=== PATIENT | female | born 1950 | race African-American/Black ===

== ENCOUNTER 2021-06-07 14:35 | Inpatient (IN) | payer MEDICAID ==
[~2021-06-07] VITALS: Ht 157.5 cm; Wt 97.1 kg
[2021-06-07 18:43] LABS: BASOPHILS % 0.5 % (0.0-2.0); EOSINOPHILS % 1.8 % (0.0-5.0); HEMATOCRIT. 28.9 % (36.0-48.0); HEMOGLOBIN. 9.4 g/dL (12.0-16.0); LYMPHOCYTES % 19.4 % (20.0-50.0); MEAN PLATELET VOLUME 7.2 fl (7.4-10.4); MONOCYTES % 9.5 % (2.0-8.0); NEUTROPHILS % 68.8 % (40.0-76.0); PLATELET 436 x1000/uL (130-400); RED BLOOD CELL COUNT 3.36 mill/uL (4.2-5.4); RED CELL DISTRIBUTION WIDTH 16.1 % (11.6-14.6)
[2021-06-07 18:53] LABS: CHLORIDE 104 mEq/L (98-107)
[2021-06-07] MEDS ORDERED: MORPHINE SULFATE 10 MG/ML CPJ IV ONE (22:45)
[2021-06-07 23:54] LABS: PROTHROMBIN TIME 10.9 sec (9.6-11.0)
[2021-06-08] MEDS ORDERED: MORPHINE SULFATE 4 MG/ML CPJ (NOT FOR IM USE) IV PRN ×2 (03:45→03:50)
[2021-06-08] MEDS ORDERED: HYDROMORPHONE HCL/PF 2MG/ML CPJ IV NR (06:15)
[2021-06-08] MEDS ORDERED: ONDANSETRON HCL 4MG/2ML INJ IV PRN (08:45)
[2021-06-08] MEDS ORDERED: NALOXONE HCL 0.4MG/ML VIAL IV PRN (09:15)
[2021-06-08] MEDS: DOCUSATE SODIUM 100MG CAPSULE PO SCH ×2 (09:30→18:40)
[2021-06-08 09:54] VITALS: BP 142/78
[2021-06-08 12:00] VITALS: BP 102/53
[2021-06-08] MEDS: MORPHINE SULFATE 2 MG/ML CPJ (NOT FOR IM USE) IV PRN ×3 (14:36→22:42)
[2021-06-08 18:00] VITALS: BP 129/60
[2021-06-08 20:00] VITALS: BP 121/58
[2021-06-08 22:47] VITALS: BP 144/109
[2021-06-09] MEDS: HYDROCODONE/ACETAMINOPHEN 5/325MG TABLET PO PRN ×2 (01:11→20:00)
[2021-06-09] MEDS: MORPHINE SULFATE 2 MG/ML CPJ (NOT FOR IM USE) IV PRN ×4 (03:36→22:14)
[2021-06-09 03:43] VITALS: BP 125/58
[2021-06-09] MEDS ORDERED: LIDOCAINE HCL/EPINEPHRINE 1%-EPI 1:100,000 20 ML VIAL ONE (07:24)
[2021-06-09] MEDS ORDERED: VANCOMYCIN HCL 1 GM/VIAL ONE ×2 (07:24→07:25)
[2021-06-09] MEDS ORDERED: POLYMYXIN B SULFATE 500000 UNITS/VIAL ONE (07:24)
[2021-06-09] MEDS ORDERED: DEXAMETHASONE 4MG/ML 1ML VIAL ONE (07:27)
[2021-06-09] MEDS ORDERED: ONDANSETRON HCL 4MG/2ML INJ ONE (07:27)
[2021-06-09] MEDS ORDERED: LIDOCAINE HCL 1% 20ML VIAL (Pyxis) INJ ONE (07:27)
[2021-06-09] MEDS ORDERED: PROPOFOL 200MG/20ML VIAL IV ONE ×2 (07:27→07:56)
[2021-06-09] MEDS ORDERED: FENTANYL CITRATE/PF 50MCG/ML 2ML VIAL ONE (07:27)
[2021-06-09] MEDS ORDERED: MIDAZOLAM HCL 2 MG/2 ML VIAL ONE (07:40)
[2021-06-09] MEDS ORDERED: HYDROMORPHONE HCL/PF 2MG/ML CPJ ONE (08:13)
[2021-06-09] MEDS ORDERED: MEPERIDINE HCL/PF 25MG/ML CPJ IV PRN (08:45)
[2021-06-09] MEDS ORDERED: LABETALOL 5MG/ML SYR 20 MG/4 ML SYRINGE IV PRN (08:45)
[2021-06-09] MEDS ORDERED: ONDANSETRON HCL 4MG/2ML INJ IV PRN (08:45)
[2021-06-09] MEDS ORDERED: HYDROMORPHONE HCL/PF 2MG/ML CPJ IV PRN (08:45)
[2021-06-09] MEDS ORDERED: BUPIVACAINE HCL/PF 0.5% (5MG/ML) 30ML ONE (08:48)
[2021-06-09] MEDS: DOCUSATE SODIUM 100MG CAPSULE PO SCH ×2 (09:00→16:35)
[2021-06-09 11:57] VITALS: BP 140/77
[2021-06-09] MEDS: CEFAZOLIN 2,000 MG in DEXT 5% WATER 100 ML IV SCH ×2 (12:51→18:20)
[2021-06-09 15:40] LABS: HEMATOCRIT. 26.4 % (36.0-48.0); HEMOGLOBIN. 8.7 g/dL (12.0-16.0); MEAN CORPUSCULAR VOLUME 85.2 fL (81.0-99.0); MEAN PLATELET VOLUME 7.4 fl (7.4-10.4); PLATELET 480 x1000/uL (130-400); RED BLOOD CELL COUNT 3.09 mill/uL (4.2-5.4); RED CELL DISTRIBUTION WIDTH 15.8 % (11.6-14.6)
[2021-06-09 15:51] LABS: CHLORIDE 104 mEq/L (98-107)
[2021-06-09 16:00] VITALS: BP 126/96
[2021-06-09 16:15] LABS: PLATELET ESTIMATE INCREASED
[2021-06-09 20:00] VITALS: BP 132/69
[2021-06-10] VITALS: BP 121/92
[2021-06-10] MEDS: HYDROCODONE/ACETAMINOPHEN 5/325MG TABLET PO PRN ×4 (00:11→20:08)
[2021-06-10] MEDS: CEFAZOLIN 2,000 MG in DEXT 5% WATER 100 ML IV SCH ×3 (02:21→17:57)
[2021-06-10] MEDS: MORPHINE SULFATE 2 MG/ML CPJ (NOT FOR IM USE) IV PRN ×3 (02:22→13:51)
[2021-06-10 04:00] VITALS: BP 138/89
[2021-06-10 08:00] VITALS: BP 131/48
[2021-06-10] MEDS: DOCUSATE SODIUM 100MG CAPSULE PO SCH ×2 (08:41→17:57)
[2021-06-10 12:00] VITALS: BP 139/61
[2021-06-10 16:00] VITALS: BP 119/73
[2021-06-10 20:00] VITALS: BP 116/60
[2021-06-10 20:46] LABS: BASOPHILS % 0.3 % (0.0-2.0); EOSINOPHILS % 0.8 % (0.0-5.0); HEMATOCRIT. 23.4 % (36.0-48.0); HEMOGLOBIN. 7.7 g/dL (12.0-16.0); LYMPHOCYTES % 16.9 % (20.0-50.0); MEAN CORPUSCULAR VOLUME 85.6 fL (81.0-99.0); MEAN PLATELET VOLUME 7.1 fl (7.4-10.4); MONOCYTES % 13.6 % (2.0-8.0); NEUTROPHILS % 68.4 % (40.0-76.0); PLATELET 430 x1000/uL (130-400); RED BLOOD CELL COUNT 2.74 mill/uL (4.2-5.4); RED CELL DISTRIBUTION WIDTH 16.1 % (11.6-14.6)
[2021-06-10 21:01] LABS: CHLORIDE 103 mEq/L (98-107)
[2021-06-11] VITALS: BP 120/71
[2021-06-11] MEDS: HYDROCODONE/ACETAMINOPHEN 5/325MG TABLET PO PRN ×5 (00:15→19:33)
[2021-06-11] MEDS: CEFAZOLIN 2,000 MG in DEXT 5% WATER 100 ML IV SCH (02:40)
[2021-06-11 04:00] VITALS: BP 127/52
[2021-06-11 08:00] VITALS: BP 130/48
[2021-06-11] MEDS: DOCUSATE SODIUM 100MG CAPSULE PO SCH ×2 (08:15→17:35)
[2021-06-11] MEDS ORDERED: HYDR-4001 MT (10:54)
[2021-06-11] MEDS ORDERED: FERR-71 MT (10:55)
[2021-06-11] MEDS ORDERED: DOCU250C14 MT (10:55)
[2021-06-11 12:00] VITALS: BP 130/63
[2021-06-11 16:14] VITALS: BP 130/41
[2021-06-11 20:00] VITALS: BP 126/63
[2021-06-11] MEDS: LORAZEPAM 2MG/ML CPJ IV PRN (20:25)
[2021-06-12] VITALS: BP 119/59
[2021-06-12] MEDS: HYDROCODONE/ACETAMINOPHEN 5/325MG TABLET PO PRN ×4 (01:10→22:13)
[2021-06-12 04:00] VITALS: BP 121/61
[2021-06-12 08:00] VITALS: BP 118/66
[2021-06-12] MEDS: DOCUSATE SODIUM 100MG CAPSULE PO SCH ×2 (09:51→18:30)
[2021-06-12] MEDS: SULFAMETHOXAZOLE/TRIMETHOPRIM 800/160MG TABLET PO SCH ×2 (12:18→22:12)
[2021-06-12 16:00] VITALS: BP 141/89
[2021-06-12 16:29] LABS: HEMATOCRIT 23.5 % (36.0-48.0); HEMOGLOBIN 7.6 g/dL (12.0-16.0)
[2021-06-12 20:00] VITALS: BP 145/73
[2021-06-12] MEDS: LACTULOSE 20G/30ML UDC PO SCH (22:12)
[2021-06-13] VITALS: BP 139/70
[2021-06-13 04:00] VITALS: BP 140/71
[2021-06-13] MEDS: LACTULOSE 20G/30ML UDC PO SCH ×3 (05:09→22:13)
[2021-06-13] MEDS: HYDROCODONE/ACETAMINOPHEN 5/325MG TABLET PO PRN ×4 (06:43→23:19)
[2021-06-13 08:00] VITALS: BP 136/66
[2021-06-13] MEDS: SULFAMETHOXAZOLE/TRIMETHOPRIM 800/160MG TABLET PO SCH ×2 (08:40→22:13)
[2021-06-13] MEDS: DOCUSATE SODIUM 100MG CAPSULE PO SCH (08:40)
[2021-06-13] MEDS ORDERED: NALOXONE HCL 0.4MG/ML VIAL IV PRN (10:15)
[2021-06-13] MEDS: DOCUSATE SODIUM 250MG CAPSULE PO SCH (10:28)
[2021-06-13 12:07] VITALS: BP 131/54
[2021-06-13] MEDS ORDERED: SORBITOL 70% SOLN 30ML PO NR (13:00)
[2021-06-13] MEDS: FERROUS SULFATE 325MG TABLET PO SCH ×2 (13:14→17:34)
[2021-06-13] MEDS: NA PHOS,M-B/NA PHOS,DI-BA ENEMA 118ML PR NR ×3 (15:30→17:34)
[2021-06-13 16:00] VITALS: BP 135/57
[2021-06-13 20:00] VITALS: BP 133/78
[2021-06-14] VITALS: BP 151/60
[2021-06-14 04:00] VITALS: BP 146/70
[2021-06-14] MEDS: LACTULOSE 20G/30ML UDC PO SCH ×3 (05:41→21:52)
[2021-06-14] MEDS: HYDROCODONE/ACETAMINOPHEN 5/325MG TABLET PO PRN ×4 (05:42→18:01)
[2021-06-14 08:00] VITALS: BP 112/53
[2021-06-14] MEDS: DOCUSATE SODIUM 250MG CAPSULE PO SCH (08:44)
[2021-06-14] MEDS: SULFAMETHOXAZOLE/TRIMETHOPRIM 800/160MG TABLET PO SCH ×2 (08:44→21:51)
[2021-06-14] MEDS: FERROUS SULFATE 325MG TABLET PO SCH ×3 (08:44→18:03)
[2021-06-14 12:00] VITALS: BP 129/54
[2021-06-14 12:36] LABS: HEMATOCRIT 24.8 % (36.0-48.0); HEMOGLOBIN 8.1 g/dL (12.0-16.0)
[2021-06-14 16:00] VITALS: BP 128/57
[2021-06-14 20:00] VITALS: BP 127/64
[2021-06-14] MEDS: LORAZEPAM 2MG/ML CPJ IV PRN (21:52)
[2021-06-15] VITALS: BP 127/50
[2021-06-15] MEDS: HYDROCODONE/ACETAMINOPHEN 5/325MG TABLET PO PRN ×5 (02:13→21:41)
[2021-06-15 04:00] VITALS: BP 125/55
[2021-06-15] MEDS: LACTULOSE 20G/30ML UDC PO SCH ×3 (06:15→21:30)
[2021-06-15 08:00] VITALS: BP 125/53
[2021-06-15] MEDS: FERROUS SULFATE 325MG TABLET PO SCH ×3 (08:55→17:19)
[2021-06-15] MEDS: SULFAMETHOXAZOLE/TRIMETHOPRIM 800/160MG TABLET PO SCH ×2 (08:57→21:30)
[2021-06-15] MEDS: DOCUSATE SODIUM 250MG CAPSULE PO SCH (08:57)
[2021-06-15 12:00] VITALS: BP 120/78
[2021-06-15 16:00] VITALS: BP 137/68
[2021-06-15 20:00] VITALS: BP 116/56
[2021-06-16] VITALS: BP 156/51
[2021-06-16 04:00] VITALS: BP 142/41
[2021-06-16] MEDS: HYDROCODONE/ACETAMINOPHEN 5/325MG TABLET PO PRN ×3 (06:37→18:24)
[2021-06-16] MEDS: LACTULOSE 20G/30ML UDC PO SCH ×3 (06:37→21:37)
[2021-06-16 08:00] VITALS: BP 115/89
[2021-06-16] MEDS: DOCUSATE SODIUM 250MG CAPSULE PO SCH (08:16)
[2021-06-16] MEDS: FERROUS SULFATE 325MG TABLET PO SCH ×3 (08:16→17:05)
[2021-06-16] MEDS: SULFAMETHOXAZOLE/TRIMETHOPRIM 800/160MG TABLET PO SCH (08:16)
[2021-06-16] MEDS: DIPHENHYDRAMINE 25MG CAPSULE PO PRN ×2 (11:29→21:37)
[2021-06-16 12:00] VITALS: BP 143/57
[2021-06-16 13:19] LABS: BASOPHILS % 0.9 % (0.0-2.0); EOSINOPHILS % 1.7 % (0.0-5.0); HEMATOCRIT. 25.8 % (36.0-48.0); HEMOGLOBIN. 8.8 g/dL (12.0-16.0); LYMPHOCYTES % 14.4 % (20.0-50.0); MEAN CORPUSCULAR HEMOGLOBIN 28.4 pg (28.0-32.0); MEAN CORPUSCULAR VOLUME 83.2 fL (81.0-99.0); MEAN PLATELET VOLUME 7.8 fl (7.4-10.4); MONOCYTES % 9.4 % (2.0-8.0); NEUTROPHILS % 73.6 % (40.0-76.0); PLATELET 468 x1000/uL (130-400); RED CELL DISTRIBUTION WIDTH 16.1 % (11.6-14.6)
[2021-06-16 13:21] LABS: CHLORIDE 104 mEq/L (98-107)
[2021-06-16 16:00] VITALS: BP 134/60
[2021-06-16 20:00] VITALS: BP 137/70
[2021-06-16] MEDS ORDERED: ENOXAPARIN 40MG/0.4ML SYR SUBCUT SCH (22:00)
[2021-06-17] VITALS: BP 125/56
[2021-06-17] MEDS: HYDROCODONE/ACETAMINOPHEN 5/325MG TABLET PO PRN ×4 (01:23→18:18)
[2021-06-17 04:00] VITALS: BP 119/56
[2021-06-17] MEDS: LACTULOSE 20G/30ML UDC PO SCH ×3 (05:27→21:51)
[2021-06-17] MEDS: ENOXAPARIN 30MG/0.3ML SYR SUBCUT SCH ×3 (06:56→21:51)
[2021-06-17 08:00] VITALS: BP 126/59
[2021-06-17] MEDS: DOCUSATE SODIUM 250MG CAPSULE PO SCH (09:09)
[2021-06-17] MEDS: FERROUS SULFATE 325MG TABLET PO SCH ×3 (09:09→18:10)
[2021-06-17 12:00] VITALS: BP 140/59
[2021-06-17 16:00] VITALS: BP 139/61
[2021-06-17 20:00] VITALS: BP 130/61
[2021-06-18] VITALS: BP 119/58
[2021-06-18] MEDS: HYDROCODONE/ACETAMINOPHEN 5/325MG TABLET PO PRN ×2 (03:39→11:50)
[2021-06-18 04:00] VITALS: BP 124/62
[2021-06-18] MEDS: LACTULOSE 20G/30ML UDC PO SCH ×3 (06:59→23:01)
[2021-06-18 08:00] VITALS: BP 119/52
[2021-06-18] MEDS: DOCUSATE SODIUM 250MG CAPSULE PO SCH (10:23)
[2021-06-18] MEDS: FERROUS SULFATE 325MG TABLET PO SCH ×3 (10:23→17:22)
[2021-06-18] MEDS: ENOXAPARIN 30MG/0.3ML SYR SUBCUT SCH ×2 (10:26→23:01)
[2021-06-18] MEDS ORDERED: NALOXONE HCL 0.4MG/ML VIAL IV PRN (11:45)
[2021-06-18 12:00] VITALS: BP 144/50
[2021-06-18] MEDS: ACETAMINOPHEN 325MG TABLET PO PRN ×2 (15:46→23:05)
[2021-06-18 16:00] VITALS: BP 130/68
[2021-06-18 20:00] VITALS: BP 130/56
[2021-06-19] VITALS: BP 128/54
[2021-06-19] MEDS: ACETAMINOPHEN 325MG TABLET PO PRN (05:08)
[2021-06-19] MEDS: LACTULOSE 20G/30ML UDC PO SCH ×2 (05:08→14:14)
[2021-06-19 08:00] VITALS: BP 137/50
[2021-06-19] MEDS: FERROUS SULFATE 325MG TABLET PO SCH ×3 (08:46→17:42)
[2021-06-19] MEDS: DOCUSATE SODIUM 250MG CAPSULE PO SCH (08:46)
[2021-06-19] MEDS: HYDROCODONE/ACETAMINOPHEN 5/325MG TABLET PO PRN ×3 (08:46→18:24)
[2021-06-19] MEDS: ENOXAPARIN 30MG/0.3ML SYR SUBCUT SCH ×2 (11:32→22:04)
[2021-06-19 12:00] VITALS: BP_SYST 110; BP_SYST 146; BP_DIAS 48; BP_DIAS 64
[2021-06-19 16:00] VITALS: BP 145/60
[2021-06-19 20:00] VITALS: BP 135/53
[2021-06-20] VITALS: BP 132/51
[2021-06-20 00:20] LABS: HEMOGLOBIN 8.4 g/dL (12.0-16.0)
[2021-06-20] MEDS: HYDROCODONE/ACETAMINOPHEN 5/325MG TABLET PO PRN ×4 (02:45→23:51)
[2021-06-20 04:00] VITALS: BP 138/55
[2021-06-20] MEDS: FERROUS SULFATE 325MG TABLET PO SCH ×3 (08:51→19:20)
[2021-06-20] MEDS: DOCUSATE SODIUM 250MG CAPSULE PO SCH (09:00)
[2021-06-20] MEDS: ENOXAPARIN 30MG/0.3ML SYR SUBCUT SCH ×2 (10:18→21:56)
[2021-06-20 12:00] VITALS: BP 136/65
[2021-06-20 16:00] VITALS: BP 145/68
[2021-06-20 20:00] VITALS: BP 149/55
[2021-06-20] MEDS: SIMETHICONE 80MG TABLET CHEW PO PRN (21:56)
[2021-06-21] VITALS: BP 148/54
[2021-06-21] MEDS: HYDROCODONE/ACETAMINOPHEN 5/325MG TABLET PO PRN ×3 (03:53→14:22)
[2021-06-21 04:00] VITALS: BP 143/54
[2021-06-21 08:00] VITALS: BP 125/52
[2021-06-21] MEDS: ENOXAPARIN 30MG/0.3ML SYR SUBCUT SCH ×2 (09:14→21:52)
[2021-06-21] MEDS: FERROUS SULFATE 325MG TABLET PO SCH ×3 (09:14→17:41)
[2021-06-21] MEDS: DOCUSATE SODIUM 250MG CAPSULE PO SCH (09:14)
[2021-06-21 12:00] VITALS: BP 120/52
[2021-06-21 16:00] VITALS: BP 120/85
[2021-06-21 20:00] VITALS: BP 151/50
[2021-06-21] MEDS: ACETAMINOPHEN 325MG TABLET PO PRN (21:51)
[2021-06-22] VITALS: BP 137/65
[2021-06-22 04:00] VITALS: BP 159/62
[2021-06-22] MEDS: ACETAMINOPHEN 325MG TABLET PO PRN (05:04)
[2021-06-22 08:00] VITALS: BP 121/49
[2021-06-22] MEDS: DOCUSATE SODIUM 250MG CAPSULE PO SCH (09:09)
[2021-06-22] MEDS: FERROUS SULFATE 325MG TABLET PO SCH ×3 (09:09→18:26)
[2021-06-22] MEDS: HYDROCODONE/ACETAMINOPHEN 5/325MG TABLET PO PRN (09:10)
[2021-06-22] MEDS: ENOXAPARIN 30MG/0.3ML SYR SUBCUT SCH ×2 (09:20→22:24)
[2021-06-22 12:00] VITALS: BP 120/48
[2021-06-22 16:00] VITALS: BP 138/73
[2021-06-22 20:00] VITALS: BP 137/62
[2021-06-22] MEDS: SIMETHICONE 80MG TABLET CHEW PO PRN (22:23)
[2021-06-23] VITALS: BP 153/83
[2021-06-23 04:00] VITALS: BP 144/61
[2021-06-23] MEDS: HYDROCODONE/ACETAMINOPHEN 5/325MG TABLET PO PRN (07:29)
[2021-06-23 08:00] VITALS: BP 137/51
[2021-06-23] MEDS: LACTULOSE 20G/30ML UDC PO SCH ×2 (09:37→16:39)
[2021-06-23] MEDS: DOCUSATE SODIUM 250MG CAPSULE PO SCH (09:37)
[2021-06-23] MEDS: FERROUS SULFATE 325MG TABLET PO SCH ×3 (09:37→16:39)
[2021-06-23] MEDS: ENOXAPARIN 30MG/0.3ML SYR SUBCUT SCH (09:38)
[2021-06-23] MEDS: ACETAMINOPHEN 325MG TABLET PO PRN (13:48)
[2021-06-23 16:00] VITALS: BP 147/53
[2021-06-23 20:00] VITALS: BP 154/73
[2021-06-23 20:04] VITALS: BP 147/53
== END 2021-06-23 20:30 | DRG 308 ==
LOC: ER 14:43 → MICUSO 23:04 → 6WST 06-08 03:59 → 6EST 06-14 15:18
PROVIDERS: ADMIT Internal Medicine; ATTEND Internal Medicine
PROC: 0QSB06Z Reposition Right Lower Femur with Intramedullary Internal Fixation Device, Open Approach (ICD-10-PCS; principal; 2021-06-09)
DX: S72.491A Other fracture of lower end of right femur, initial encounter for closed fracture (principal); Z68.39 Body mass index [BMI] 39.0-39.9, adult; D64.9 Anemia, unspecified; E66.01 Morbid (severe) obesity due to excess calories; I10 Essential (primary) hypertension; Z20.822 Contact with and (suspected) exposure to COVID-19; W01.0XXA Fall on same level from slipping, tripping and stumbling without subsequent striking against object, initial encounter; Y93.89 Activity, other specified; Y92.89 Other specified places as the place of occurrence of the external cause; Y99.8 Other external cause status; Z71.3 Dietary counseling and surveillance
CPT/HCPCS: 36415; 71045; 73502; 73552; 73560; 73590; 73620; 76000; 80048; 85014; 85018; 85025; 86850; 86900; 86920; 87426; 93005; 93306; 93970; 97110; 97162; 97165; 97530; 97535; 99285; C1713; C1769; J0690; J1100; J1170; J1650; J2060; J2250; J2270; J2405; J2704; J3010; J3370; J3490; J7060; Q0163